=== PATIENT | male | born 1935 | race Hispanic/Latino ===

== ENCOUNTER 2016-09-01 10:42 | Outpatient (CLI) | payer MEDICARE ==
--- NOTE | 2016-09-01 11:28 | XRay Report ---
AP lateral of the lumbar spine. History: Chronic low back pain. Findings: There is mild levoscoliosis. There is mild loss of height of the L3 and L4 vertebral bodies with biconcave deformity. Moderate Narrowing of the disc spaces is seen at L2-3 and L3-4 with mild narrowing at L1-2. Anterior hypertrophic changes are seen these levels. There is no evidence of subluxation. The pedicles are intact. Impression: 1. Mild levoscoliosis. 2. Mild chronic compression deformities of L3 and L4 with no evidence of acute fracture or subluxation. Diffuse osteopenia is present. Moderate discogenic changes are seen at L2-3 and L3-4 with mild changes at L1-2.
== END 2016-09-01 10:43 | disposition home or self-care (01) ==
LOC: SPVIMAG 10:42
PROVIDERS: ATTEND Internal Medicine
DX: M41.87 Other forms of scoliosis, lumbosacral region (principal); M85.88 Other specified disorders of bone density and structure, other site; M43.8X6 Other specified deforming dorsopathies, lumbar region
CPT/HCPCS: 72100